=== PATIENT | male | born 1955 | race Caucasian/White ===

== ENCOUNTER 2017-02-07 05:19 | Day surgery (SDC) | payer BC ==
[~2017-02-07] VITALS: Ht 188 cm; Wt 99.8 kg
--- NOTE | ~2017-02-07 | O ---
[facility] [place] [address] OPERATIVE REPORT Name: BRIAN LAGOS Room #: DEP [facility]..#: [id number] Admission: 02/07/17 Attend Phys: Delgado Childs MD Discharge: 02/07/17 Date of : 57 Report #: [id number] THIS REPORT FOR: //name// CC: Michael Childs DATE OF SERVICE: 02/07/2017 DATE OF SERVICE: 02/07/2017 SURGEON: Delgado Childs MD WEBSPHERE ADMINISTRATOR: None. PREOPERATIVE DIAGNOSIS: Bilateral lower lid ectropion. POSTOPERATIVE DIAGNOSIS: Bilateral lower lid ectropion. OPERATION PERFORMED: Bilateral lower lid ectropion repair. ANESTHESIA: Local with IV sedation. COMPLICATIONS: None. INDICATIONS FOR PROCEDURE: This patient has bilateral acquired lower lid ectropion with chronic tearing and discharge. The current procedures are undertaken in order to improve the patient's visual function, lacrimal outflow, and level of comfort. Informed consent was obtained to include but not limit to the risk of loss of vision, bleeding, infection, scarring, failure to improve the problem and need for further surgery. DESCRIPTION OF OPERATION: The patient was taken to the operating room where 2% Xylocaine with epinephrine mixed with equal parts of 0.75% Marcaine with Wydase was administered transcutaneously and transconjunctivally to each lower lid and lateral canthal area. The patient was then prepped and draped in the usual sterile fashion. A Jonh clamp was then used to clamp the left lateral canthus following which a sharp canthotomy and cantholysis were performed. The tarsal strip was prepared laterally, removing the lash bearing portion of the redundant lid margin and the redundant tarsal plate. Hemostasis was achieved with a monopolar cautery, as it was throughout the case. The tarsal strip was then secured to the internal portion of the lateral orbital tubercle with two interrupted 5-0 Prolene sutures. The lateral canthal angle was sharply reformed as the subcutaneous structures and the skin were closed with multiple interrupted 6-0 plain gut sutures. Attention was then turned to the right side where the same procedure was [facility] [address] [place] [address] OPERATIVE REPORT Name: BRIAN LAGOS Room #: DEP [facility].R.#: [id number] Admission: 02/07/17 Attend Phys: Delgado Childs MD Discharge: 02/07/17 Date of : 57 Report #: [id number] performed. The wounds were cleaned and dressed with ophthalmic antibiotic ointment. The patient was then transported to the recovery area, having tolerated the procedure well with no anesthetic or operative complications being noted. <ELECTRONICALLY SIGNED> By: Delgado Childs MD 02/15/17 1549 1559 1613 Delgado Childs MD /nt
[~2017-02-07 05:19] MED LIST: ASPIR 8181 MG PO; AVANDARYL 4 MG PO; BAYER PLUS 500500 MG PO; BENADRYL25 MG PO; BENEFIBER1 EAC1 PO; CENTRUM SILVER1 EAC2 PO; CRESTOR20 MG PO; FAMOTIDINE PO; FLONASE 0.05%50 MCG NASAL; GLUCOPHAGE500 MG PO; HYDROCODONE-APA1 TA1 PO; INVOKANA300 MG PO; JANUVIA100 MG PO; KETOCONAZOLE 2200 MG PO; LEVEMIR100 UNIT/1 SQ; MICARDIS40 MG PO; NOVOLOG100 UNIT/1 SQ; OCUVITE LUTEIN1 EAC1 PO; OCUVITE TABLET1 EAC1 PO; PREDNISONE PO; RANITIDINE HCL300 MG PO; SENOKOT-S1 TA1 PO
[2017-02-07 14:18] VITALS: BP 149/76
== END 2017-02-07 16:30 | disposition home or self-care (01) ==
LOC: TBA 05:19 → OR 05:19 → TBA 05:20 → OR 11:25
DX: H02.102 Unspecified ectropion of right lower eyelid (principal); H02.105 Unspecified ectropion of left lower eyelid; E11.9 Type 2 diabetes mellitus without complications
CPT/HCPCS: 50010; 50101; 50386; 50398; 51636; 56527; 56531; 62110; 62850; 70005

== ENCOUNTER → 2018-05-22 | Outpatient (CLI) | payer BC ==
[~2018-05-22] VITALS: Ht 188 cm; Wt 107.5 kg
[~2018-05-22] MED LIST changes: +AMARYL2 MG PO; +ELIQUIS5 MG PO; +JARDIANCE25 MG PO; +METFORMIN HCL500 MG PO; +VICTOZA0.6 MG/0.1 SUBQ
--- NOTE | ~2018-05-22 | P ---
[facility] [place] [address] PROCEDURE REPORT Name: BRIAN LAGOS Room #: REG TOM Nicole.#: [id number] Admission: 05/22/18 Attend Phys: Gerald Blanchard MD Discharge: Date of : 57 Report #: [id number] THIS REPORT FOR: //name// CC: Sav Rodriguez Ausmus ATRIAL FLUTTER ABLATION PREOPERATIVE DIAGNOSIS: Atrial flutter. POSTOPERATIVE DIAGNOSIS: Typical cavo-tricuspid isthmus-dependent flutter. HISTORY OF PRESENT ILLNES: The patient is a 62-year-old male with a history of typical atrial flutter, here for ablation. PROCEDURES PERFORMED: 1. SVT ablation, CPT code 59934. 2. EP with left atrial pacing and recording, CPT code 56522. 3. Program stimulation and pacing after IV drug, CPT code 19270. 4. 3-D mapping, CPT code 17820. ANESTHESIA: The patient underwent MAC anesthesia, with no anesthesia-related complications. DESCRIPTION OF PROCEDURE: The patient underwent informed consent. We discussed the details of the procedure, including the risks, which include but not limited to bleeding, vascular damage, stroke, SC as well as damage to the kaw conduction system, requiring permanent pacemaker. He understood these risks and is willing to proceed. The patient was brought to the EP laboratory in a fasting and sedated state and prepped and draped in a sterile fashion. I obtained access to the right femoral vein x 1 and the left femoral vein x 2, placing an 8-Romansh short sheath in the right femoral vein and two 7-Romansh short sheaths in the left femoral vein. I had some difficulty getting more than one access to the right femoral vein. Next, under fluoroscopy, I placed a decapolar catheter easily in the coronary sinus and a Halo catheter into the right atrium. This was performed under fluoroscopy. Left atrial pacing and recording was performed by the decapolar catheter. At baseline, the patient was in atrial flutter with a ventricular cycle length of 470 milliseconds, atrial cycle length of 230 milliseconds, QRS duration 70 milliseconds and QT interval 325 milliseconds. The atrial activation was proximal to distal along the coronary sinus and counter clockwise along the decapolar catheter. Entrainment was performed at 6 o'clock along the [facility] [address] [place] [address] PROCEDURE REPORT Name: BRIAN LAGOS Destiny Room #: REG Slade Destiny.#: [id number] Admission: 05/22/18 Attend Phys: Geradl Blanchard MD Discharge: Date of : 57 Report #: [id number] cavo-tricuspid isthmus and the PPI minus tachycardia cycle length was 10, consistent with cavo-tricuspid isthmus-dependent flutter. 3D MAPPING AND ABLATION: Next, a detailed 3D geometry of the right atrium was created with specific emphasis of the cavo-tricuspid isthmus. Ablation was then performed at 70 marshall and 60 degrees and a continuous drag lesion was created until I fell into the IVC. The flutter had not terminated. I performed entrainment maneuvers again and these were still consistent with typical atrial flutter. I, therefore, performed some ablation more medially on the distal third of the isthmus and the flutter did not terminate. I then looked slightly laterally to my line and at this site, there was a very sharp electrogram that remained. Ablation at this site resulted in termination of atrial flutter within 4.8 seconds. There was a 2.7-second conversion pause. To consolidate this region, I performed additional ablation slightly more laterally to where it terminated and then again throughout this site and then I went back more medially and ablated here as well. Post-ablation, the transisthmus conduction time was 150 milliseconds with differential pacing performed and consistent with bidirectional block. Post-ablation, the patient was in sinus rhythm with a sinus cycle length of 536 milliseconds, OK interval 225 milliseconds, QRS duration 70 milliseconds, QT interval 370 milliseconds, AH interval 110 milliseconds and HV interval 50 milliseconds. Next, a basic EP study was performed. Atrial burst pacing was performed and AV block was noted at 380 milliseconds. AV anna ERP was noted at 320 milliseconds at a [address] cycle length. Next, isoproterenol infusion was started at 1 mcg per minute. AV block was noted at 350 milliseconds. AV anna ERP was noted at 320 milliseconds at a [address] cycle length. The sinus node recovery time pacing at 400 milliseconds was 1036 milliseconds. Next, the isoproterenol infusion was increased to 2 mcg per minute and AV block was 390. AV anna ERP was 350 at a [address] cycle length. Post-ablation, the patient was in sinus rhythm with a sinus cycle length of 580 milliseconds, OK interval 210 milliseconds, QRS duration 80 milliseconds and QT interval 300 milliseconds. As such, the patient had persistence of bidirectional block for a period of 30 minutes and I could not induce any other arrhythmias on or off isoproterenol. As such, the procedure was concluded. Catheters and sheaths were pulled and hemostasis was obtained. The patient awoke neurologically and hemodynamically intact. No complications and no significant leak. CONCLUSIONS: [facility] [address] [place] [address] PROCEDURE REPORT Name: BRIAN LAGOS Room #: PERLA Car#: [id number] Admission: 05/22/18 Attend Phys: Gerald Blanchard MD Discharge: Date of : 57 Report #: [id number] 1. Successful ablation of typical atrial flutter with evidence of bidirectional block. 2. Normal SA anna function. 3. Normal AV anna function. 4. Normal His-Purkinje function. 5. No inducible arrhythmias on or off isoproterenol. <ELECTRONICALLY SIGNED> By: Gerald Blanchard MD 05/25/18 1313 1527 0113 Gerald Blanchard MD /nt
[2018-05-22 10:42] LABS: ABSOLUTE NEUTROPHILS 4.5 thou/uL (1.4-8.2); BASOPHILS 0.3 % (0.0-2.0); EOSINOPHILS 0.9 % (0.0-3.0); HEMATOCRIT 54.1 % (42.0-52.0); HEMOGLOBIN 18.5 gm/dL (14.0-18.0); LYMPHOCYTES 19.2 % (24.0-44.0); MCH 29.9 pg (26.0-34.0); MCHC 34.2 g/dL (28.0-37.0); MCV 87.5 fL (80.0-100.0); MONOCYTES 8.5 % (1.0-8.0); PLATELET COUNT 200 thou/uL (150-400); POLYS 71.1 % (36.0-66.0); RBC 6.18 mil/uL (4.50-6.00); RDW 12.9 % (10.5-14.5); WBC 6.3 thou/uL (4.0-11.0)
[2018-05-22 10:46] LABS: CALCIUM 9.5 mg/dL (8.5-10.1); CREATININE 1.2 mg/dL (0.7-1.3); POTASSIUM 4.2 mmol/L (3.5-5.1)
[2018-05-22 10:48] LABS: APTT 28.1 Seconds (24.5-32.8); PROTIME 10.7 Seconds (9.3-11.4)
[2018-05-22 10:56] LABS: ALBUMIN 4.2 g/dL (3.4-5.0); TOTAL PROTEIN 8.2 g/dL (6.4-8.2)
[2018-05-22 10:58] VITALS: BP 124/59
== END | disposition home or self-care (01) ==
LOC: CATH 09:09
PROVIDERS: Internal Medicine Cardiovascular Disease
DX: I48.3 Typical atrial flutter (principal); I25.10 Atherosclerotic heart disease of native coronary artery without angina pectoris; E11.9 Type 2 diabetes mellitus without complications; E78.5 Hyperlipidemia, unspecified; Z98.52 Vasectomy status; Z98.890 Other specified postprocedural states; Z95.5 Presence of coronary angioplasty implant and graft; Z90.3 Acquired absence of stomach [part of]; Z82.49 Family history of ischemic heart disease and other diseases of the circulatory system; Z79.01 Long term (current) use of anticoagulants; Z87.19 Personal history of other diseases of the digestive system; Z79.899 Other long term (current) drug therapy; Z79.82 Long term (current) use of aspirin
CPT/HCPCS: 62110; 62900; 70005

== ENCOUNTER → 2018-08-25 | Outpatient (CLI) | payer BC ==
--- NOTE | ~2018-08-25 | P ---
[facility] [place] [address] PROCEDURE REPORT Name: BRIAN LAGOS Room #: REG [facility].#: [id number] Admission: 08/25/18 ������������������ Attend Phys: Gerald Blanchard MD Discharge: ������������������ Date of : 57 Report #: [id number] THIS REPORT FOR: //name// CC: Sav Dickey PROCEDURE: Implantation of implantable loop recorder. PREOPERATIVE DIAGNOSIS: Palpitations. POSTOPERATIVE DIAGNOSIS: Palpitations. PROCEDURE: The patient underwent informed consent. He was prepped and draped in a sterile fashion. I injected lidocaine at the incision site. An incision was made and the [place] Confirm implantable loop recorder was injected under the skin. A single layer of suture was performed and surgical glue was placed at the outer skin layer. There were no procedural complications. CONCLUSIONS: Successful implantation of a Confirm [place] implantable loop recorder. ��������������������������������������������� ���������������������������������������� By: ��������������������������������������������� 1508 1539 Gerald Blanchard MD /nt
[2018-08-25 10:15] VITALS: BP 135/59
== END | disposition home or self-care (01) ==
LOC: CATH 08:22
DX: R00.2 Palpitations (principal); E11.9 Type 2 diabetes mellitus without complications; E78.5 Hyperlipidemia, unspecified; I48.92 Unspecified atrial flutter; Z82.49 Family history of ischemic heart disease and other diseases of the circulatory system; Z98.890 Other specified postprocedural states; Z95.5 Presence of coronary angioplasty implant and graft; Z98.84 Bariatric surgery status; Z98.52 Vasectomy status; Z79.01 Long term (current) use of anticoagulants; Z79.899 Other long term (current) drug therapy; Z79.82 Long term (current) use of aspirin

== ENCOUNTER → 2019-06-21 | Outpatient (CLI) | payer OTHER ==
[~2019-06-21] VITALS: Ht 188 cm; Wt 107.5 kg
[~2019-06-21] MED LIST changes: +LANTUS SUBQ; +TRULICITY1.5 MG/0.5 SUBQ
--- NOTE | 2019-06-25 19:07 | PATH ---
[facility] [place] [address] PATHOLOGY RPT PROCEDURE Name: CLAUDIO EL Room #: REG [facility].Destiny.#: [id number] Admission: 06/21/19 Date of : 57 Discharge: Report #: [id number] Path Case #: [id number] [facility] Accession Number: [id number] . 01 Material submitted: . PART A: ileo-cecal valve - POLYP AT ILEOCECAL VALVE PART B: colon - POLYP AT PROXIMAL TRANSVERSE. Modifiers: proximal, transverse PART C: colon - POLYP AT 60CM PART D: colon - POLYP AT 20CM PART E: anus - POLYP AT ANAL VERGE . 01 Clinical history: . Screening, family history of colon cancer Colon polyps, anal papillae . 02 Diagnosis: A. Polyp, at ileocecal valve, endoscopic biopsy: - Hyperplastic polyp identified in all fragments sampled. - Negative for dysplasia. . B. Polyp, at proximal transverse, endoscopic biopsy: - Tubular adenoma. - Negative for high-grade dysplasia. . C. Polyp, at 60 cm, endoscopic biopsy: - Tubular adenoma. - Negative for high-grade dysplasia. . D. Polyp, at 20 cm, endoscopic biopsy: - Tubular adenoma. - Negative for high-grade dysplasia. . E. Polyp, at anal verge, endoscopic biopsy: - Squamous epithelial fragments showing findings consistent with a squamous papilloma as well as mild hyperkeratosis. - Negative for high-grade dysplasia. . (IUV:air intelligence officer; 06/25/2019) MBR 06/25/2019 1353 Local . 02 Electronically signed: . Evita Mclean MD, Pathologist NPI- [id number] . 01 Gross description: . A. The specimen is received in formalin, labeled "Claudio El, [place] [address] PATHOLOGY RPT PROCEDURE Name: CLAUDIO EL Room #: REG CLI Josep#: [id number] Admission: 06/21/19 Date of : 57 Discharge: Report #: [id number] Path Case #: [id number] at ileocecal valve" and consists of 2 segments of womack tissue measuring 0.6 x 0.4 x 0.1 cm and 0.9 x 0.8 x 0.2 cm which are entirely submitted in A1. . B. The specimen is received in formalin, labeled "Claudio El, polyp at proximal transverse" and consists of 2 fragments of pink-womack tissue measuring 0.3 x 0.3 cm and 0.2 x 0.2 cm which are entirely submitted in B1. . C. The specimen is received in formalin, labeled "Claudio El, polyp at 60 cm" and consists of a segment of womack tissue measuring 1.0 x 0.9 x 0.1 cm which is entirely submitted in C1. . D. The specimen is received in formalin, labeled "Claudio El, polyp at 20 cm" and consists of a fragment of pink-womack tissue measuring 0.3 x 0.3 x 0.2 cm which is entirely submitted in D1. . E. The specimen is received in formalin, labeled "Claudio El, polyp at anal verge" and consists of multiple delicate fragments of pink-stanley tissue measuring 1.2 x 0.5 x 0.1 cm in aggregate which are entirely submitted in E1. (SDY; 06/22/2019) SYU/SYU 06/22/2019 1603 Local . 02 Pathologist provided ICD-10: K63.5, D12.3, D12.6, D12.8 . 02 CPT . 981864, 234302, 796905, 613445, 713352 Specimen Comment: A courtesy copy of this report has been sent to [phone], [phone] Specimen Comment: [phone] Specimen Comment: Report sent to / DR KOWALSKI Performed at: [address] [facility], [place], [place] [id number] MD Epifanio Brunson MD Phone: [phone] Performed at: [address] [facility] [id number] MD Evita Mclean MD Phone: [phone]
--- NOTE | 2019-06-29 10:13 | P ---
[facility] [place] [address] PROCEDURE REPORT Name: BRIAN LAGOS [id number] Admission: 06/21/19 Attend Phys: Danny Madrid MD Discharge: Date of : 57 Report #: [id number] THIS REPORT FOR: //name// CC: Danny LOCO DATE OF SERVICE: 06/21/2019 BRIEF HISTORY: The patient is a 63-year-old male with family history of colon cancer. His son of colon cancer at age 26. His last colonoscopy was over 5 years ago and he presents for colonoscopy due to family history of colon cancer. PREOPERATIVE DIAGNOSIS: Family history of colon cancer. POSTOPERATIVE DIAGNOSES: 1. Multiple colon polyps. 2. Polypoid lesion anal verge. 3. Enlarged anal papilla. MEDICATIONS: Deep sedation with propofol per anesthesia. SPECIMENS: 1. Polyp, ileocecal valve. 2. Polyp, proximal transverse colon. 3. Polyp at 60 cm. 4. Polyp at 20 cm. 5. Polypoid lesion at anal verge. ESTIMATED BLOOD LOSS: 3 mL. PROCEDURE: Colonoscopy to cecum and terminal ileum with snare polypectomy and biopsy. FINDINGS: Prior to propofol sedation, procedure of colonoscopy discussed with the patient as well as potential risks and its complications. He indicates he understands and desires to proceed. DESCRIPTION OF PROCEDURE: With the patient in left lateral decubitus position, digital examination was completed, which revealed small lesions and he is known to have a history of enlarged anal papillae. These were noted in the anal canal. Subsequently, the Olympus video colonoscope was introduced in the rectum and advanced under direct vision to the cecum. This was done with minimal difficulty. The cecum was identified by the ileocecal valve and the appendiceal orifice. I was able to visualize the distal segment of the terminal ileum, [facility] [address] [place] [address] PROCEDURE REPORT Name: LAGOSBRIAN Room #: REG CL Cathleen.#: [id number] Admission: 06/21/19 Attend Phys: Danny Madrid MD Discharge: Date of : 57 Report #: [id number] which was inspected and noted to be unremarkable. At that point, the scope was slowly withdrawn and careful circumferential views were obtained including retroflexing the scope in the ascending colon. As we withdrew the scope, there were noted to be multiple fairly large pools of greenish liquidy material. Unfortunately, there was no significant particulate material and we were able to suction up this material. Overall, good prep was obtained. As we withdrew the scope, he was found to have a 6-7 mm sessile polypoid lesion on the ileocecal valve. This may represent redundant tissue, but it did have distinct borders so it was removed by cold snare polypectomy. Scope was further withdrawn and a diminutive polyp was seen and removed with biopsy forceps from the proximal transverse colon. It did have an adenomatous appearance. Scope was further withdrawn, no additional abnormalities were noted until about 60 cm, at which point, a 6 mm oval flat polypoid lesion was removed by cold snare polypectomy and recovered. No additional abnormalities were noted until about 20 cm in the distal sigmoid, at which point a diminutive polyp was seen and removed with biopsy forceps. Scope was withdrawn in the rectum, no abnormalities were identified until upon retroflexion, he was noted to have about an 8 mm polypoid lesion right at the anal verge. Review of his previous colonoscopy reports indicates that he did have large anal papillae. He does have prominent papillae. However, this polypoid lesion may represent a large papilla, but a neoplastic process could not be entirely excluded. A snare was placed around it, but we could not remove with the snare, as it was too tenacious. We then obtained multiple biopsies with biopsy forceps. Scope was withdrawn. The patient tolerated the procedure well. CONDITION OF THE PATIENT UPON DISCHARGE: Following procedure, the patient drowsy, aroused, conversant and will be discharged home when fully ambulatory. INSTRUCTIONS TO THE PATIENT AND FAMILY AT THE TIME OF DISCHARGE: We will follow up on the pathology. In view of the multiple polyps, suggest a followup colonoscopy in 3 years, especially in view of his family history. As far as the anal lesion, we will follow up on biopsies. If there is anything worse about this lesion, it could be removed transanally by Dr. Ibarra. <ELECTRONICALLY SIGNED> By: Danny Madrid MD 06/29/19 1013 0822 0911 Danny Madrid MD /nt
== END | disposition home or self-care (01) ==
LOC: GI 06:28
DX: Z12.11 Encounter for screening for malignant neoplasm of colon (principal); Z80.0 Family history of malignant neoplasm of digestive organs; D12.3 Benign neoplasm of transverse colon; D12.5 Benign neoplasm of sigmoid colon; K62.89 Other specified diseases of anus and rectum; E11.9 Type 2 diabetes mellitus without complications; I48.92 Unspecified atrial flutter; Z98.890 Other specified postprocedural states; Z79.899 Other long term (current) drug therapy; Z98.52 Vasectomy status; Z79.01 Long term (current) use of anticoagulants; Z98.84 Bariatric surgery status
CPT/HCPCS: 62110; 62900

== ENCOUNTER → 2019-07-16 | Outpatient (CLI) | payer OTHER | LOC: SJCVCIMAG 10:41 | DX: R00.1 Bradycardia, unspecified (principal); I25.10 Atherosclerotic heart disease of native coronary artery without angina pectoris; I48.92 Unspecified atrial flutter; I10 Essential (primary) hypertension ==

== ENCOUNTER → 2020-06-11 | Outpatient (CLI) | payer OTHER ==
[2020-06-11 09:46] LABS: ABSOLUTE NEUTROPHILS 3.6 thou/uL (1.4-8.2); BASOPHILS 0.4 % (0.0-2.0); EOSINOPHILS 1.6 % (0.0-3.0); HEMATOCRIT 50.2 % (42.0-52.0); HEMOGLOBIN 16.9 gm/dL (14.0-18.0); LYMPHOCYTES 21.9 % (24.0-44.0); MCH 29.8 pg (26.0-34.0); MCHC 33.7 g/dL (28.0-37.0); MCV 88.5 fL (80.0-100.0); MONOCYTES 11.2 % (1.0-8.0); PLATELET COUNT 180 thou/uL (150-400); POLYS 64.9 % (36.0-66.0); RBC 5.67 mil/uL (4.50-6.00); WBC 5.6 thou/uL (4.0-11.0)
[2020-06-11 10:13] LABS: ALBUMIN 3.9 g/dL (3.4-5.0); ANION GAP 7 mmol/L (7-16); BUN 20 mg/dL (7-18); CALCIUM 9.1 mg/dL (8.5-10.1); CHLORIDE 100 mmol/L (98-107); CHOLESTEROL 122 mg/dL (<200); CO2 29 mmol/L (21-32); CREATININE 1.1 mg/dL (0.7-1.3); GLUCOSE 159 mg/dL (74-106); HDL CHOLESTEROL 46 mg/dL (>40); LDL CHOLESTEROL 61 mg/dL (<100); POTASSIUM 4.4 mmol/L (3.5-5.1); SGOT 16 U/L (15-37); SGPT 32 U/L (30-65); SODIUM 136 mmol/L (136-145); TC:HDL 2.7 Ratio (Not establshd); TOTAL BILIRUBIN 0.8 mg/dL (0.2-1.0); TOTAL PROTEIN 7.5 g/dL (6.4-8.2); TRIGLYCERIDE 76 mg/dL (<150); VLDL 15 mg/dL (<40)
[2020-06-11 21:06] LABS: GLYCOHEMOGLOBIN (HGB A1C) 8.8 % (4.8-5.6)
== END ==
LOC: LAB 09:06
PROVIDERS: ATTEND Family Medicine
DX: E11.9 Type 2 diabetes mellitus without complications (principal); I48.92 Unspecified atrial flutter; E78.00 Pure hypercholesterolemia, unspecified; Z12.5 Encounter for screening for malignant neoplasm of prostate

== ENCOUNTER → 2020-07-30 | Outpatient (CLI) | payer OTHER | LOC: SJCVCIMAG 08:35 | PROVIDERS: ATTEND Internal Medicine Cardiovascular Disease | DX: R94.31 Abnormal electrocardiogram [ECG] [EKG] (principal); I49.3 Ventricular premature depolarization; I48.91 Unspecified atrial fibrillation; E78.5 Hyperlipidemia, unspecified; E11.9 Type 2 diabetes mellitus without complications; I25.10 Atherosclerotic heart disease of native coronary artery without angina pectoris; Z88.8 Allergy status to other drugs, medicaments and biological substances; Z79.82 Long term (current) use of aspirin; Z79.899 Other long term (current) drug therapy ==

== ENCOUNTER → 2020-08-04 | Outpatient (CLI) | payer OTHER ==
[~2020-08-04] VITALS: Ht 188 cm; Wt 112.9 kg
[~2020-08-04] MED LIST changes: +HYDROCODON-ACE1 EAC7 PO; +ULTRAM50 MG PO; +VIAGRA25 MG PO
[2020-08-04 07:16] VITALS: BP 124/53
--- NOTE | 2020-08-04 17:10 | CATHLAB ---
[facility] [place] [address] INVASIVE PROCEDURE REPORT Name: BRIAN LAGOS Room #: REG TOM MarkJenniferDestiny.#: [id number] Admission: 08/04/20 Attend Phys: Sav Rayo MD Discharge: Date of : 57 Report #: [id number] THIS REPORT FOR: cc: Francine Banks DNP, Mary E. DNP Park, Jin S. MD ~ APPROVED REPORT Study performed: 08/04/2020 08:03:46 Patient Details Patient Status: Out-Patient Room #: The patient is a 64 year-old male Event Personnel Sav Rayo Worm Raiser, Waqar Stahl RN RN, Simona Diaz RTR Scrub, Lori Frances RTR Monitor Procedures Performed Art Access - R femoral artery* Left Heart Cath w/or w/o Coronaries [id number] [facility] [address] Initial Mod Sed Same Phys/QHP Gr5y 339925 43284 Mod Sed Same Phys/QHP Ea 615354 Indication Positive stress test, Chest pain Risk Factors Hypercholesterolemia, Coronary Artery DiseaseHypertension Procedure Narrative The Right Groin^ was infiltrated with 1% Lidocaine subcutaneous anesthesia. A PINNACLE 4FR Sheath #[id number] sheath was inserted into the RFA^. Coronary angiography was performed using coronary diagnostic catheters. The right coronary system was accessed and visualized with a 4FR AR MOD #[id number] catheter. The left coronary system was accessed and visualized with a JL4 catheter. The left ventricle was accessed and visualized with a JR4 catheter. Hemostasis was obtained with manual pressure following sheath removal without any complications. The patient tolerated the procedure well and there were no complications associated with the procedure. There was no hematoma. Intraoperative Conscious Sedation Sedation start time: 821 Case end Time: 852 [facility] [address] [place] [address] INVASIVE PROCEDURE REPORT Name: BRIAN LAGOS Destiny Room #: REG CL [facility]#: [id number] Admission: 08/04/20 Attend Phys: Sav Rayo MD Discharge: Date of : 57 Report #: [id number] Fentanyl 75 mcg Versed 1 mg Fluoro Time: 5.40 minutes Dose: DAP 6116.00 cGycm2 1642 mGy Contrast Type and Amount: Omnipaque 50 ml Coronary Angiography The patient's coronary anatomy is co- dominant. Diagnostic Cath Left Main The left main artery is a large-caliber vessel, patent with no flow-limiting lesions. LAD The LAD is a moderate-sized caliber vessel, traversing the anterior wall and wraps around the apex. There is mild disease in the midsegment, 20%. Diagonal 1 This is a patent vessel, with no flow-limiting lesions. Diagonal 2 There is a mild stenosis in the proximal segment, 30%. Circumflex The left circumflex artery is a moderate-sized caliber vessel, patent with no flow-limiting lesions. OM1 This is a small caliber vessel, patent with no flow-limiting lesions. OM2 There is a patent stent in the proximal segment with mild restenosis, 30%. Right Coronary There is mild disease in the proximal and mid segments of the RCA, 30%. R PDA This is a moderate-sized caliber vessel, patent with no flow-limiting lesions. Left Ventriculography Left Ventriculography was not performed. Ejection Fraction was 55-60% based off patient's Nuclear Cardiac Stress Test. An LVEDP was measured and there is no gradient across the outflow tract. Hemodynamics The aortic pressure is 157/71 mmHg with a mean of 100 mmHg. The left ventricular pressure is 150/4 mmHg with a mean of mmHg. The left ventricular end diastolic pressure is 20 mmHg. Conclusion 1. There is a patent stent in the second obtuse marginal artery with mild restenosis. 2. There is mild disease in the LAD and RCA. [facility] [address] [place] [address] INVASIVE PROCEDURE REPORT Name: BRIAN LAGOS Room #: REG CL [facility]#: [id number] Admission: 08/04/20 Attend Phys: Sav Rayo MD Discharge: Date of : 57 Report #: [id number] 3. There is normal LV systolic function. 4. Recommend aggressive risk factor management. <ELECTRONICALLY SIGNED> By: Sav Rayo MD 08/04/20 1710 09 09 Sav Rayo MD /ANDREW
== END | disposition home or self-care (01) ==
LOC: CATH 06:43
PROVIDERS: ATTEND Internal Medicine Cardiovascular Disease
DX: R94.39 Abnormal result of other cardiovascular function study (principal); I25.10 Atherosclerotic heart disease of native coronary artery without angina pectoris; T82.855A Stenosis of coronary artery stent, initial encounter; R07.9 Chest pain, unspecified; I10 Essential (primary) hypertension; E78.00 Pure hypercholesterolemia, unspecified; E11.9 Type 2 diabetes mellitus without complications; E78.5 Hyperlipidemia, unspecified; I48.92 Unspecified atrial flutter; I48.91 Unspecified atrial fibrillation; Z98.890 Other specified postprocedural states; Z79.899 Other long term (current) drug therapy; Z79.01 Long term (current) use of anticoagulants; Z87.442 Personal history of urinary calculi; Z79.82 Long term (current) use of aspirin

== ENCOUNTER → 2020-09-29 | Outpatient (CLI) | payer OTHER | LOC: LAB 08:18 | PROVIDERS: ATTEND Internal Medicine Cardiovascular Disease | DX: Z01.812 Encounter for preprocedural laboratory examination (principal); Z20.822 Contact with and (suspected) exposure to COVID-19 ==

== ENCOUNTER 2020-10-02 06:32 | Observation (INO) | payer OTHER ==
[2020-10-02] VITALS (11 sets, daily range): BP systolic 128–169; BP diastolic 56–86
[~2020-10-02] VITALS: Ht 188 cm; Wt 127.1 kg
[2020-10-02] MEDS ORDERED: LORATIDINE 10 M10 M1 PO (07:33)
[2020-10-02] MEDS ORDERED: LIVALO2 MG PO (07:33)
[2020-10-02 07:34] LABS: ABSOLUTE NEUTROPHILS 3.9 thou/uL (1.4-8.2); BASOPHILS 0.4 % (0.0-2.0); EOSINOPHILS 1.8 % (0.0-3.0); HEMATOCRIT 47.9 % (42.0-52.0); HEMOGLOBIN 16.7 gm/dL (14.0-18.0); LYMPHOCYTES 17.2 % (24.0-44.0); MCH 30.9 pg (26.0-34.0); MCV 88.4 fL (80.0-100.0); MONOCYTES 10.2 % (1.0-8.0); PLATELET COUNT 200 thou/uL (150-400); POLYS 70.4 % (36.0-66.0); RBC 5.42 mil/uL (4.50-6.00); RDW 13.5 % (10.5-14.5); WBC 5.6 thou/uL (4.0-11.0)
[2020-10-02] MEDS ORDERED: LUTEIN-ZEAXANT1 EACH PO (07:34)
[2020-10-02 07:45] LABS: CALCIUM 8.6 mg/dL (8.5-10.1); CREATININE 1.1 mg/dL (0.7-1.3); POTASSIUM 4.1 mmol/L (3.5-5.1)
[2020-10-02 07:47] LABS: INR 0.99; PROTIME 10.8 Seconds (9.3-11.4)
[2020-10-02 07:50] LABS: ALBUMIN 3.6 g/dL (3.4-5.0); TOTAL BILIRUBIN 0.7 mg/dL (0.2-1.0); TOTAL PROTEIN 7.1 g/dL (6.4-8.2)
--- NOTE | 2020-10-02 18:25 | NUR ---
PT IS AXOX4, PLEASANT. RECEIVED PT FROM THE IMAGING MANAGER, PPM PLACED IN L UPPER CHEST. PT C/O OF CHEST PAIN ASSOCIATED WITH PLACEMENT. VSS, AFEBRILE, PACED ON MONITOR AT 60. PT COMMUNICATES UNDERSTANDING OF BEDREST, AND KEEPING ARM IMMOBILIZER ON. POC IS TO KEEP IMMOBILIZER ON, BEDREST, WITH INTERROGATION OF PPM IN AM WITH CHEST XRAY. POSSIBLE DISCHARGE 10/03/20. LOW FALL PRECAUTIONS. NO CONCERNS AT THIS TIME.
[2020-10-03 00:16] VITALS: BP 155/68
[2020-10-03 03:35] VITALS: BP 147/63
--- NOTE | 2020-10-03 04:52 | NUR ---
SLEPT MOST OF SHIFT. REMAINS ON BEDREST UNTIL CLEARED IN AM PAST CHEST XRAY. WORKING ON GOALS AND PLAN OF CARE FOR NOC. LEFT ARM REMAINS IN IMMOBILIZER. PROGRESSING TOWARDS DISCHARGE GOALS. CONTINUE TO ASSES CLOSELY. DENIES COMPLAINTS OF PAIN AT PRESENT TIME.
[2020-10-03 07:30] VITALS: BP 150/71
--- NOTE | 2020-10-03 10:30 | NUR ---
RECEIVED PT'S CARE AROUND 0715; PT. ON BED; RESTING WITH EYES CLOSED; SR ON THE MONITOR; DURING AM ASSESSMENT PT. AOX4; REFUSED AM MEDICATION; ASKED WHEN HE WILL BE D/C; EDUCATED ABOUT D/C PROCESS; ST. UNDERSTANDING; SR-PACED ON THE MONITOR; ASSESSMENT CHARGED; FOLLOWING POC; WILL WORK ON D/C PAPERS;
[2020-10-03 10:32] VITALS: BP 150/71
--- NOTE | 2020-10-13 15:20 | P ---
[facility] [place] [address] PROCEDURE REPORT Name: BRIAN LAGOS Room #: 217-P [facility] Jessica M.R.#: [id number] Admission: 10/02/20 Attend Phys: Gerald Blanchard MD Discharge: 10/03/20 Date of : 57 Report #: [id number] THIS REPORT FOR: cc: Francine Banks DNP, Mary E. DNP Couchonnal, Luis F. MD ~ DOC #: [id number] Gerald Blanchard MD DATE OF SERVICE: 10/02/2020 PACEMAKER IMPLANTATION DATE OF PROCEDURE: 10/02/2020 PREOPERATIVE DIAGNOSIS: Sick sinus syndrome. POSTOPERATIVE DIAGNOSIS: Sick sinus syndrome. PROCEDURES PERFORMED: 1. Pacemaker implantation. 2. Implantable loop recorder removal. INDICATIONS: The patient is a 64-year-old with a history of symptomatic bradycardia, here for dual chamber pacemaker implantation. ANESTHESIA: The patient underwent MAC anesthesia with no anesthesia related complications. CONSENT: The patient underwent informed consent. We discussed the details of the procedure including the risks, which include but not limited to bleeding, infection, vascular damage, cardiac perforation, pneumothorax. He understood these risks and is willing to proceed. DESCRIPTION OF PROCEDURE: The patient was brought to the EP laboratory in a fasting and sedated state, prepped and draped in a sterile fashion and underwent a venogram and received IV antibiotics. I injected lidocaine at the incision site. Incision was made. Pocket was created over the prepectoral fascia. Access was obtained to light select axillary vein using the extrathoracic approach with sheaths, using the modified Seldinger technique. Next, under fluoroscopy, two leads were positioned in the heart. One was placed in the right apical septum and the atrial lead was placed in the right atrial appendage with adequate pacing and sensing thresholds. The leads were sutured to the prepectoral fascia. The device was connected to the device pocket and irrigated with vancomycin and the pocket, closed in 2 layers with surgical glue placed to the skin layer. The patient awoke neurologically and hemodynamically intact. No complications. No significant bleeding. [facility] [address] [place] [address] PROCEDURE REPORT Name: DEMONDBRIAN Room #: 217-P [facility].#: [id number] Admission: 10/02/20 Attend Phys: Gerald Blanchard MD Discharge: 10/03/20 Date of : 57 Report #: [id number] Planning device and leads were [employer] Nettronic. The device was a model number [id number], serial number [id number]. Atrial lead was a 5076, 52 cm, serial number [id number], RV lead was a Medtronic model number 5076, 58 cm, serial number [id number]. Atrial lead demonstrated a P-wave of 1.1 millivolts, pacing impedance of 608 ohms, pacing threshold of 0.5 volts at 0.4 milliseconds. RV lead demonstrated R waves of 20, pacing impedance of 874 ohms. The pacing threshold was 0.5 volts at 0.4 milliseconds. The device was programmed [id number]. After the pacemaker was implanted, I injected lidocaine at the implantable loop recorder site. Incision was made. The device was removed and a suture was deployed and surgical glue was placed on the surgical site as well. CONCLUSION: 1. Successful dual-chamber pacemaker implantation 2. Successful explantation of an implantable loop recorder. Gerald Blanchard MD [facility] <ELECTRONICALLY SIGNED> By: Gerald Blanchard MD 10/13/20 1520 [id number] Gerald Blanchard MD /nt
== END 2020-10-03 11:14 | disposition home or self-care (01) ==
LOC: CATH 06:32 → TBA 07:10 → CATH 08:59 → 2N 11:41 → CATH 12:12 → 2N 10-03 11:14
PROVIDERS: ADMIT Internal Medicine Cardiovascular Disease; ATTEND Internal Medicine Cardiovascular Disease
DX: I49.5 Sick sinus syndrome (principal); R55 Syncope and collapse; I25.10 Atherosclerotic heart disease of native coronary artery without angina pectoris; E11.9 Type 2 diabetes mellitus without complications; I10 Essential (primary) hypertension; E78.5 Hyperlipidemia, unspecified; Z79.82 Long term (current) use of aspirin; Z79.01 Long term (current) use of anticoagulants; Z79.84 Long term (current) use of oral hypoglycemic drugs; Z79.899 Other long term (current) drug therapy
CPT/HCPCS: 62110; 62900; 70005

== ENCOUNTER → 2021-02-12 | Outpatient (CLI) | payer OTHER ==
[~2021-02-12] MED LIST changes: +LIVALO2 MG PO; +LORATIDINE 10 M10 M1 PO; +LUTEIN-ZEAXANT1 EACH PO
== END ==
LOC: SJCVCIMAG 07:20
PROVIDERS: ATTEND Internal Medicine Cardiovascular Disease
DX: I65.23 Occlusion and stenosis of bilateral carotid arteries (principal); I11.9 Hypertensive heart disease without heart failure; R09.89 Other specified symptoms and signs involving the circulatory and respiratory systems; E11.9 Type 2 diabetes mellitus without complications; I25.10 Atherosclerotic heart disease of native coronary artery without angina pectoris

== ENCOUNTER → 2021-02-24 | Outpatient (CLI) | payer OTHER ==
[~2021-02-24] MED LIST changes: +ASA81BEC PO; +DOXYCYCLINE 10100 M2 PO; +TYLENOL EXTRA500 MG PO
== END ==
LOC: LAB 08:38
PROVIDERS: ATTEND Student in an Organized Health Care Education/Training Program
DX: Z01.812 Encounter for preprocedural laboratory examination (principal); Z20.822 Contact with and (suspected) exposure to COVID-19

== ENCOUNTER 2021-02-25 06:27 | Day surgery (SDC) | payer OTHER ==
[~2021-02-25] VITALS: Ht 188 cm; Wt 108.9 kg
[~2021-02-25 06:27] MED LIST changes: -TYLENOL EXTRA500 MG PO
[2021-02-25 06:55] VITALS: BP 136/66
[2021-02-25] MEDS ORDERED: DOXYCYCLINE 10100 M2 PO (08:24)
[2021-02-25] MEDS ORDERED: ULTRAM50 MG PO (08:26)
[2021-02-25] MEDS ORDERED: TYLENOL EXTRA500 MG PO (08:27)
[2021-02-25 08:37] VITALS: BP 136/66
--- NOTE | 2021-02-27 18:10 | PATH ---
[facility] [address] [place] [address] PATHOLOGY RPT PROCEDURE Name: BRIAN EL Room #: DEP [facility] M.R.#: [id number] Admission: 02/25/21 Date of : 57 Discharge: 02/25/21 Report #: [id number] Path Case #: [id number] [facility] Accession Number: [id number] . 01 Material submitted: . shoulder - RIGHT SHOULDER CYST. Modifiers: right . 01 Clinical history: . . . 02 Diagnosis: Cyst, right shoulder cyst, excision: - Marked acute inflammation with abscess formation and giant cell reaction, consistent with a ruptured cyst. - Focal residual mature keratinous cyst present. - Overlying squamous epithelium showing reactive change. (IUV:pit; 02/27/2021) QTP 02/27/2021 1523 Local . 02 Electronically signed: . Evita Mclean MD, Pathologist NPI- [id number] . 01 Gross description: . The specimen is received in formalin, labeled "Brian El, right shoulder cyst" and consists of an unoriented elliptical skin excision (3.8 x 1.5 cm, excised to a depth of 1.9 cm). The deep margin displays 2 disruptions (0.8 x 0.8 cm and 1.1 x 1.0 cm). The epidermis is womack, dusky and unremarkable. Sectioning reveals a previously disrupted womack-white, soft grumous material filled cyst (1.7 cm in greatest dimension). [employer] Hand sections are submitted in A1. ([place]; 02/26/2021) DKA/DKA 02/26/2021 1040 Local . 02 Pathologist provided ICD-10: L98.9, L02.413, L72.0 . 02 CPT . 450721 Specimen Comment: A courtesy copy of this report has been sent to [phone] Specimen Comment: [phone] Specimen Comment: Report sent to / DR KOWALSKI Performed at: [address] [facility] [address], [place] [id number] MD Gabriel Bermudez MD Phone: [phone] Performed at: [address] [address] PATHOLOGY RPT PROCEDURE Name: BRIAN EL Room #: DEP [facility] M.R.#: [id number] Admission: 02/25/21 Date of : 57 Discharge: 02/25/21 Report #: [id number] Path Case #: [id number] [facility] [address], [place], [place] [id number] MD Evita Mclean MD Phone: [phone]
== END 2021-02-25 09:05 | disposition home or self-care (01) ==
LOC: OR 06:27 → TBA 06:29 → OR 08:43
PROVIDERS: ATTEND Surgery
DX: L72.0 Epidermal cyst (principal); L98.9 Disorder of the skin and subcutaneous tissue, unspecified; L02.413 Cutaneous abscess of right upper limb; I10 Essential (primary) hypertension; I25.10 Atherosclerotic heart disease of native coronary artery without angina pectoris; E78.5 Hyperlipidemia, unspecified; I48.92 Unspecified atrial flutter; E11.9 Type 2 diabetes mellitus without complications; Z98.52 Vasectomy status; Z98.890 Other specified postprocedural states; Z79.899 Other long term (current) drug therapy; Z79.4 Long term (current) use of insulin; Z88.8 Allergy status to other drugs, medicaments and biological substances
CPT/HCPCS: 50010; 50101; 50386; 50403; 56525; 56526; 62110; 62850; 70005

== ENCOUNTER → 2021-05-21 | Outpatient (CLI) | payer OTHER ==
[~2021-05-21] MED LIST changes: +TYLENOL EXTRA500 MG PO
[2021-05-21 09:02] LABS: ALBUMIN 3.6 g/dL (3.4-5.0); ANION GAP 8 mmol/L (7-16); BUN 17 mg/dL (7-18); CALCIUM 8.7 mg/dL (8.5-10.1); CHLORIDE 100 mmol/L (98-107); CHOLESTEROL 199 mg/dL (<200); CO2 27 mmol/L (21-32); CREATININE 1.1 mg/dL (0.7-1.3); GLUCOSE 151 mg/dL (74-106); HDL CHOLESTEROL 36 mg/dL (>40); LDL CHOLESTEROL 138 mg/dL (<100); POTASSIUM 4.2 mmol/L (3.5-5.1); SGOT 15 U/L (15-37); SGPT 17 U/L (30-65); SODIUM 135 mmol/L (136-145); TC:HDL 5.5 Ratio (Not establshd); TOTAL BILIRUBIN 0.9 mg/dL (0.2-1.0); TOTAL PROTEIN 7.3 g/dL (6.4-8.2); TRIGLYCERIDE 127 mg/dL (<150); VLDL 25 mg/dL (<40)
[2021-05-22 13:08] LABS: CREATININE (ALB/CR) 134.3 mg/dL (Not Estab.); MICROALBUMIN-RND URINE 52.3 ug/mL (Not Estab.)
== END ==
LOC: LAB 07:48
PROVIDERS: ATTEND Nurse Practitioner
DX: E11.65 Type 2 diabetes mellitus with hyperglycemia (principal); I10 Essential (primary) hypertension; E78.5 Hyperlipidemia, unspecified